=== PATIENT | female | born 1990 | race Caucasian/White ===

== ENCOUNTER 2024-04-13 10:57 | Emergency (ER) | payer MEDICAID ==
[~2024-04-13] VITALS: Ht 167.6 cm; Wt 130.0 kg
[2024-04-13] MEDS ORDERED: NITROGLYCERIN 0.4 MG SUBL SL PRN (11:00)
[2024-04-13] MEDS ORDERED: ASPIRIN 81 MG CHEW PO ONE (11:00)
[2024-04-13 11:12] LABS: BASOPHILS 0.5 % (0-2); EOSINOPHILS 1.4 % (0-6); HEMATOCRIT 47.3 % (35.0-50.0); LYMPHOCYTES 32.3 % (24-44); MCH 29.2 (27-36); MCHC 33.9 g/dl (30-36); MCV 86.1 fl (81-99); MONOCYTES 6.5 % (0-12); NEUTROPHILS 59.3 % (39-80); PLATELET COUNT 293 K/uL (140-440)
[2024-04-13 11:29] LABS: PARTIAL THROMBOPLASTIN TIME 32.8 Sec (22.9-41.3)
[2024-04-13 11:30] LABS: PROTIME 12.5 Sec (11.2-14.2)
[2024-04-13 11:35] LABS: ALBUMIN 3.7 g/dL (3.4-5.0); ALBUMIN/GLOBULIN RATIO 0.86 (1.1-2.4); BILIRUBIN, TOTAL 0.5 ng/dL (0.2-1.0); BUN/CREATININE RATIO 6.74 (6.0-28.6); CALCIUM 9.3 mg/dL (8.5-10.1); CREATININE, SERUM 0.89 mg/dL (0.55-1.02); MAGNESIUM 1.7 mg/dL (1.8-2.4)
[2024-04-13 11:47] LABS: AMPHETAMINES, URINE NEGATIVE (NEGATIVE); BARBITURATES, URINE NEGATIVE (NEGATIVE); BENZODIAZEPINE, URINE NEGATIVE (NEGATIVE); BUPRENORPHINE, URINE NEGATIVE (NEGATIVE); CANNABINOID, URINE POSITIVE (NEGATIVE); COCAINE, URINE NEGATIVE (NEGATIVE); ECSTASY, URINE NEGATIVE (NEGATIVE); FENTANYL, URINE NEGATIVE (NEGATIVE); METHADONE, URINE NEGATIVE (NEGATIVE); OPIATES, URINE NEGATIVE (NEGATIVE); OXYCODONE, URINE NEGATIVE (NEGATIVE); PHENCYCLIDINE, URINE NEGATIVE (NEGATIVE)
[2024-04-13 12:08] VITALS: BP 150/110
--- OUTSIDE RECORDS SUMMARY | 2024-04-13 12:57 | XMS ---
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 ED/UCC VISIT TRACKING (12 MO.) 04/13/2024 10:57 [facility] [place] TYPE: Emergency COMPLAINT: - CHEST PAIN [facility]24 23:[facility] [place] [facility] DIAGNOSES: 1. Anxiety disorder, unspecified 11/24/2023 22:29 [facility] [place] TYPE: Emergency DIAGNOSES: 1. Dizziness and giddiness 2. Syncope and collapse 3. Other stimulant abuse, uncomplicated 4. Shortness of breath 11/06/2023 12:10 [facility] [place] [facility] DIAGNOSES: 1. Nausea with vomiting, unspecified 10/19[facility]2023 11:[facility] [place] [facility] DIAGNOSES: 1. Anxiety disorder, unspecified 2. Chest pain, unspecified 10/18/2023 18:09 [facility] TYPE: Emergency DIAGNOSES: 1. Palpitations 2. Other stimulant abuse, uncomplicated 09/21/2023 14:47 [facility] TYPE: Emergency DIAGNOSES: 1. Dizziness and giddiness 2. Other stimulant abuse, uncomplicated 06/16/2023 01:28 [facility] TYPE: Emergency DIAGNOSES: 1. Headache, unspecified 1. Other specified disorders of teeth and supporting structures 1. Periapical abscess without sinus 2. Headache, unspecified 2. Other stimulant abuse, uncomplicated 3. Other stimulant abuse, uncomplicated 04/22/2023 23:19 [facility] TYPE: Emergency DIAGNOSES: 1. Acute pharyngitis, unspecified 2. Acute upper respiratory infection, unspecified 3. Chest pain, unspecified INPATIENT VISIT TRACKING (12 MO.) No inpatient visits to display in this time frame [email or web address]
--- NOTE | 2024-04-13 17:46 | EKG ---
[facility] [address] [place], [place] [address] Signed Normal sinus rhythm Rightward axis Borderline ECG No previous ECGs available Confirmed by Collins Haynes MD ([id number]) on 04/13/2024 5:46:03 PM Electronically Signed By: COLLINS HAYNES DO 04/13/24 1746 PATIENT NAME: DANIEL CHIU Electrocardiogram DATE OF : 89 PHYSICIAN: COLLINS HAYNES DO REPORT #: [id number] REPORT IS CONFIDENTIAL AND NOT TO BE RELEASED WITHOUT AUTHORIZATION
== END 2024-04-13 12:08 | disposition home or self-care (01) ==
LOC: ED 10:57
PROVIDERS: Emergency Medicine
DX: R07.89 Other chest pain (principal); F12.90 Cannabis use, unspecified, uncomplicated
CPT/HCPCS: 36415; 71045; 80053; 80307; 83735; 83880; 84484; 84703; 85025; 85610; 85730; 93005; 93010; 99285-25; A9270